=== PATIENT | male | born 1975 | race Two or more races ===

== ENCOUNTER 2019-06-06 11:05 | Emergency (ER) | payer OTHER ==
[2019-06-06 11:15] VITALS: BP 130/92; PULSE 95; TEMP 98.5; BMI 31.7
--- NOTE | 2019-06-06 11:30 | PDOC ---
History of Present Illness - General Chief Complaint: Pain Stated Complaint: INSOMNIA Time Seen by Provider: 06/06/19 11:28 History Source: Patient Exam Limitations: No Limitations - History of Present Illness Initial Comments: 06/06/19 11:42 normalizer, patient is here with complaints of chronic insomnia. States was seen at [facility]'s emergency Department and given prescription for sleeping aid, but does not remember the name of medication Past History - Travel Traveled outside of the country in the last 30 days: No Close contact w/someone who was outside of country & ill: No - Past Medical History Allergies/Adverse Reactions: Allergies Allergy/AdvReac Type Severity Reaction Status Date / Time No Known Allergies Allergy Verified 06/06/19 11:15 Home Medications: Ambulatory Orders Diphenhydramine HCl [Benadryl -] 25 mg PO Q8H PRN #21 capsule 06/06/19 COPD: No Other medical history: denies - Suicide/Smoking/Psychosocial Hx Smoking History: Never smoked Information on smoking cessation initiated: No Hx Alcohol Use: No Drug/Substance Use Hx: No Review of Systems - Review of Systems Able to Perform ROS?: Yes Is the patient limited Pashto proficient: Yes Constitutional: Yes: Symptoms Reported, See HPI HEENTM: Yes: See HPI. No: Symptoms Reported, Ear Discharge, Nose Congestion Respiratory: Yes: See HPI. No: Symptoms reported, Cough, Shortness of Breath, Wheezing Cardiac (ROS): Yes: See HPI. No: Symptoms Reported Integumentary: No: Symptoms Reported Neurological: Yes: See HPI. No: Symptoms reported, Headache All Other Systems: Reviewed and Negative *Physical Exam - Vital Signs Last Vital Signs Temp Pulse Resp BP Pulse Ox 98.5 F 95 H 18 130/92 100 06/06/19 11:13 06/06/19 11:13 06/06/19 11:13 06/06/19 11:13 06/06/19 11:13 - Physical Exam General Appearance: Yes: Nourished, Appropriately Dressed HEENT: positive: VICTOR HUGO, Normal ENT Inspection, TMs Normal, Pharynx Normal. negative: Nasal Congestion, Rhinorrhea Neck: positive: Supple. negative: Tender Respiratory/Chest: positive: Lungs Clear, Normal Breath Sounds Cardiovascular: positive: Regular Rhythm, Regular Rate Gastrointestinal/Abdominal: positive: Soft. negative: Tender Extremity: positive: Normal Capillary Refill, Normal Inspection, Normal Range of Motion, Tender Integumentary: positive: Normal Color, Dry, Warm, Pale Neurologic: positive: pump tender II-XII NML intact, Fully Oriented, Alert, Normal Mood/ Affect, Normal Response, Motor Strength 5/5 *DC/Admit/Observation/Transfer Diagnosis at time of Disposition: Insomnia Qualifiers: Insomnia type: unspecified Qualified Code(s): G47.00 - Insomnia, unspecified - Discharge Dispostion Disposition: HOME Condition at time of disposition: Stable Decision to Admit order: No - Prescriptions Prescriptions: Diphenhydramine HCl [Benadryl -] 25 mg PO Q8H PRN #21 capsule PRN Reason: sneezing/cough - Referrals - Patient Instructions Printed Discharge Instructions: DI for Insomnia Additional Instructions: Rest, avoid stressful environments drink lots of fluids: Teas, water, soups, Lots of handwashing and good hygiene Continue [id number] medications for symptomatic relief Tylenol or Motrin for fever and pain Consider melatonin, warm milk, exercise/yoga to help rest May use 1-25 mg tablet of Benadryl at night to help assist with sleep Followup with private physician in one to 2 days as needed Be sure to keep appointment with private physician in one week to inquire about further sleeping aids and evaluation Return to emergency department for worsened symptoms, fevers, dehydration, weakness or other neurologic symptoms - Post Discharge Activity Forms/Work/School Notes: Back to Work
== END 2019-06-06 12:23 | disposition home or self-care (01) ==
LOC: JERFT 11:05
DX: G47.00 Insomnia, unspecified (principal)
CPT/HCPCS: 99281-25